=== PATIENT | male | born 1995 ===

== ENCOUNTER 2024-03-13 17:52 | Outpatient (REF) | payer BC, SELFPAY ==
[2024-03-15 13:02] LABS: Chlamydia Result Negative (Negative)
[2024-03-15 13:56] LABS: GC Result Positive (Negative)
== END 2024-03-13 17:53 | disposition home or self-care (01) ==
LOC: LBN 17:52
PROVIDERS: Visit Provider Nurse Practitioner Family
DX: Z11.3 Encounter for screening for infections with a predominantly sexual mode of transmission (principal); R30.0 Dysuria
CPT/HCPCS: 87491; 87591; 87086